=== PATIENT | female | born 1985 | race Hispanic/Latino ===

== ENCOUNTER 2020-12-29 20:19 | Emergency (ER) | payer MEDICAID, MEDICARE ==
[~2020-12-29] VITALS: Ht 165.1 cm; Wt 103.4 kg
[2020-12-29] MEDS ORDERED: ONDANSETRON 4MG INJ ONE (20:38)
[2020-12-29 20:47] LABS: BASOPHILS % (AUTO) 0.2 % (0.0-5.0); HEMATOCRIT 35.6 % (36-48); LYMPHOCYTES % (AUTO) 21.8 % (21.0-51.0); MEAN CORPUSCULAR HGB CONC 32.3 g/dL (32.0-36.0); MEAN CORPUSCULAR VOLUME 86.8 fL (79-99); MONOCYTES % (AUTO) 5.4 % (3.0-13.0); NEUTROPHILS % (AUTO) 71.4 % (40.0-77.0); PLATELET COUNT (AUTO) 328 K/uL (130-400); RED CELL DISTRIBUTION WIDTH 13.2 % (11.0-15.5); WHITE BLOOD COUNT (AUTO) 9.3 K/uL (4.8-10.8)
[2020-12-29 20:48] LABS: APPEARANCE,URINE Clear (CLEAR); BILIRUBIN,URINE Negative (NEGATIVE); COLOR,URINE Yellow (YELLOW); GLUCOSE, URINE (UA) >=1000 mg/dL (NEGATIVE); KETONES,URINE Negative (NEGATIVE); LEUKOCYTE ESTERASE ,URINE Negative (NEGATIVE); NITRATE,URINE Negative (NEGATIVE); OCCULT BLOOD,URINE Moderate (NEGATIVE); PROTEIN,URINE POS 1+ mg/dL (NEGATIVE)
[2020-12-29 20:50] LABS: HCG,QUAL RESULT NEGATIVE (NEGATIVE)
[2020-12-29 20:57] LABS: BACTERIA,URINE Few /HPF (None Seen); SQUAMOUS EPITHELIAL CELL,UR Few /HPF (0-2); YEAST,URINE BUDDING Rare /HPF (None Seen)
[2020-12-29 20:59] LABS: CREATININE 1.1 mg/dL (0.5-1.5)
[2020-12-29] MEDS ORDERED: ONDANSETRON 4MG INJ IVP ONE (21:00)
[2020-12-29 21:03] LABS: ALBUMIN 3.5 g/dL (3.5-5.0); BILIRUBIN,TOTAL 0.1 mg/dL (0.2-1.0); TOTAL PROTEIN, SERUM 7.9 g/dL (6.0-8.3)
[2020-12-29] MEDS ORDERED: LIDOCAINE HCL 2% VISCOUS 15 ML UDCUP ONE (21:22)
[2020-12-29] MEDS ORDERED: INSULIN HUMULIN R 100 UNIT/ML 3ML SQ ONE (21:30)
[2020-12-29] MEDS ORDERED: 0.9%NACL 1000ML 1,000 ML IV ONE (21:30)
[2020-12-29] MEDS ORDERED: INSULIN HUMULIN R 100 UNIT/ML 3ML IV ONE (22:00)
[2020-12-29] MEDS ORDERED: FAMOTIDINE 20MG VIAL IV ONE (22:00)
[2020-12-29] MEDS ORDERED: MAG/ALUM/SIMETH 30 ML UDCUP PO ONE (22:00)
[2020-12-29] MEDS ORDERED: ONDA4TAB10 PO (22:47)
[2020-12-29] MEDS ORDERED: FAMO-136 PO (22:47)
[2020-12-29] MEDS ORDERED: DICY20TA2 PO (22:47)
[2020-12-29 23:44] VITALS: BP 125/82
== END 2020-12-29 23:46 | disposition home or self-care (01) ==
LOC: EDH 20:19
DX: R10.11 Right upper quadrant pain (principal); R11.0 Nausea; E11.9 Type 2 diabetes mellitus without complications; E66.9 Obesity, unspecified; E86.0 Dehydration; Z79.4 Long term (current) use of insulin; Z79.899 Other long term (current) drug therapy; Z68.37 Body mass index [BMI] 37.0-37.9, adult
CPT/HCPCS: 36415; 80053; 81001; 81025; 82150; 82550; 82948; 83690; 84484; 85025; 96361; 96374; 96375; 99284; J1815; J2405; J3490; J7030

== ENCOUNTER → 2023-02-08 | Outpatient (CLI) | payer OTHER ==
[~2023-02-08] MED LIST: DICY20TA2 PO; FAMO-136 PO; ONDA4TAB10 PO
== END | disposition home or self-care (01) ==
LOC: OIH 09:24
PROVIDERS: ATTEND Family Medicine
DX: Z13.6 Encounter for screening for cardiovascular disorders (principal)
CPT/HCPCS: 75571